=== PATIENT | male | born 1960 | race Caucasian/White ===

== ENCOUNTER 2018-02-28 11:06 | Emergency (ER) | payer BC ==
[2018-02-28 12:38] VITALS: BP 161/84
[2018-02-28] MEDS ORDERED: Lidocaine 1%* 5 ML VIAL INJ ONE (12:51)
[2018-02-28] MEDS: Tetan/Diph/Pertus SYR(Tdap)* 0.5 ML SYR(BOOSTRIX) use SYR IM ONE (13:31)
--- NOTE | 2018-02-28 14:04 | UC ---
Laceration HPI - HPI Summary HPI Summary: Pt presents with c/o laceration to right eye brow. 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 Denies LOC Pt states last tetanus was ~ 2010. - History Of Current Complaint Chief Complaint: UCLaceration Stated Complaint: S/P FALL RT EYE LACERATION Time Seen by Provider: 02/28/18 12:29 Hx Obtained From: Patient Laceration Location: Eye Mechanism Of Injury: Blunt Trauma Onset/Duration: Sudden Onset Severity: Moderate Pain Intensity: 0 Pain Scale Used: 0-10 Numeric Aggravating Factors: Movement Related History: Occupational Injury - Allergies/Home Medications Allergies/Adverse Reactions: Allergies Allergy/AdvReac Type Severity Reaction Status Date / Time No Known Allergies Allergy Verified 02/28/18 12:34 Home Medications: Home Medications Lansoprazole [Prevacid] 30 mg PO DAILY 02/28/18 [History Confirmed 02/28/18] Lovastatin [Altoprev] 40 mg PO DAILY 02/28/18 [History Confirmed 02/28/18] Naproxen TAB* [Naprosyn 250 mg TAB*] 2 % PO Q8H PRN 02/28/18 [History Confirmed 02/28/18] PMH/Surg Hx/FS Hx/Imm Hx Previously Healthy: Yes - Surgical History Surgical History: Yes Surgery Procedure, Year, and Place: prostectomy. right achiles tendon repair x2 - Family History Known Family History: Positive: Cardiac Disease - Social History Occupation: Employed Part-time Lives: With Family Alcohol Use: Occasionally Substance Use Type: None Smoking Status (MU): Never Smoked Tobacco Have You Smoked in the Last Year: No - Immunization History Most Recent Tetanus Shot: 2010 Vaccination Up to Date: Yes Review of Systems Constitutional: Negative Skin: Other - laceration right eyebrow Eyes: Negative ENT: Negative Respiratory: Negative Cardiovascular: Negative Gastrointestinal: Negative Genitourinary: Negative Motor: Negative Neurovascular: Negative Musculoskeletal: Myalgia - at laceration site Neurological: Negative Psychological: Negative Is Patient Immunocompromised?: No All Other Systems Reviewed And Are Negative: Yes Physical Exam Triage Information Reviewed: Yes Appearance: Well-Appearing Vital Signs: Initial Vital Signs Temp 97.9 F 02/28/18 12:30 Pulse 68 02/28/18 12:30 Resp 14 02/28/18 12:30 BP 161/84 02/28/18 12:30 Pulse Ox 100 02/28/18 12:30 Vital Signs Reviewed: Yes Eye Exam: Normal Eyes: Positive: Other: - PERRLA ENT Exam: Normal ENT: Positive: Hearing grossly normal Dental Exam: Normal Neck exam: Normal Respiratory: Positive: No respiratory distress Musculoskeletal Exam: Normal Musculoskeletal: Positive: Strength Intact, ROM Intact Neurological Exam: Normal Psychological Exam: Normal Skin Exam: Other - laceration right eyebrow Laceration Repair - Laceration Repair 1 Description: Linear : No Repair Necessary Laceration Size After Repair: Length (cm) - 1.5, Width (mm) - 5, Depth (mm) - 5 Modified For Repair: No Anesthesia Used: 1.0% Lido Irrigation With Pressure Irrigation Device: Yes Closure Material: Sutures Closure Method: Single Layer Suture Of: Skin Suture Type: Prolene - eight sutures place with 4-0 prolene, Laceration Course/Dx - Differential Dx - Laceration/Wound Differental Diagnoses: Laceration Provider Diagnoses: laceration repair right eyebrow Discharge - Sign-Out/Discharge Documenting (check all that apply): Patient Departure All imaging exams completed and their final reports reviewed: No Studies - Discharge Plan Condition: Stable Disposition: HOME Prescriptions: Cephalexin CAP* [Keflex 500 CAP*] 500 mg PO Q8H #21 cap Patient Education Materials: Facial Laceration (ED) Referrals: Cherry Arreaga NP [Primary Care Provider] - If Needed Cody Crandall MD [Medical Doctor] - 4 Days Additional Instructions: Please follow up with Dr. Crandall in 4-5 days or return here or have your PCP remove sutures. - Billing Disposition and Condition Condition: STABLE Disposition: Home - Attestation Statements Provider Attestation: Per institutional requirements, I have reviewed the chart, however, I was not consulted specifically or made aware of this patient by the midlevel provider. I did not personally evaluate, interact with , or disposition this patient.
== END 2018-02-28 13:40 | disposition home or self-care (01) ==
LOC: UCCORT 11:06
DX: S01.111A Laceration without foreign body of right eyelid and periocular area, initial encounter (principal); W17.89XA Other fall from one level to another, initial encounter; Y93.9 Activity, unspecified; Y92.9 Unspecified place or not applicable
CPT/HCPCS: 12011; 90715; 99202; G0463

== ENCOUNTER 2018-03-04 11:16 | Emergency (ER) | payer BC ==
[2018-03-04 13:39] VITALS: BP 168/83
--- NOTE | 2018-03-04 13:39 | UC ---
Skin Complaint HPI - HPI Summary HPI Summary: here for suture removal from superior orbital rim laceration - History of Current Complaint Time Seen by Provider: 03/04/18 13:31 Stated Complaint: STITCHES REMOVAL - Allergy/Home Medications Allergies/Adverse Reactions: Allergies Allergy/AdvReac Type Severity Reaction Status Date / Time No Known Allergies Allergy Verified 03/04/18 13:36 Review of Systems Constitutional: Negative Skin: Negative Eyes: Negative ENT: Negative Respiratory: Negative Cardiovascular: Negative Gastrointestinal: Negative Genitourinary: Negative Motor: Negative Neurovascular: Negative Musculoskeletal: Negative Neurological: Negative All Other Systems Reviewed And Are Negative: Yes PMH/Surg Hx/FS Hx/Imm Hx Previously Healthy: Yes - Surgical History Surgical History: Yes Surgery Procedure, Year, and Place: prostectomy. right achiles tendon repair x2 - Family History Known Family History: Positive: Cardiac Disease - Social History Alcohol Use: Occasionally Substance Use Type: None Smoking Status (MU): Never Smoked Tobacco Have You Smoked in the Last Year: No - Immunization History Most Recent Tetanus Shot: 2010 Vaccination Up to Date: Yes Physical Exam Triage Information Reviewed: Yes Appearance: Well-Appearing Vital Signs Reviewed: Yes Eye Exam: Normal Skin: Positive: Other - sutures removed atraumatically Course/Dx - Diagnoses Provider Diagnoses: suture removal Discharge - Sign-Out/Discharge Documenting (check all that apply): Patient Departure All imaging exams completed and their final reports reviewed: No Studies - Discharge Plan Condition: Good Disposition: HOME Patient Education Materials: Stitches Removal (ED) Referrals: Cherry Arreaga NP [Primary Care Provider] - - Billing Disposition and Condition Condition: GOOD Disposition: Home
== END 2018-03-04 13:47 | disposition home or self-care (01) ==
LOC: UCCORT 11:16
DX: S05 Injury of eye and orbit (principal)